=== PATIENT | female | born 1970 | race Caucasian/White ===

== ENCOUNTER → 2017-04-02 | Outpatient (CLI) | payer OTHER ==
[~2017-04-02] MED LIST: GADAVIST IV PRN
--- NOTE | 2017-04-02 16:03 | DIAGNOSTIC IMAGING REPORT ---
Brain MRI WITH AND WITHOUT CONTRAST HISTORY: Demyelinating disorder G35 Multiple [id number] TECHNIQUE: Multiplanar multisequence MRI of the brain was performed both before and after the intravenous administration of contrast. COMPARISON STUDY: 08/15/2015 FINDINGS: Multiple foci of increased signal within the periventricular deep white matter regions. These are identical as compared to the prior study. There are no new or interval findings. Old infarcts present described are again noted and are stable. Diffusion-weighted images show no evidence for an acute ischemic process. Postcontrast images are considered negative for an enhancing lesion. IMPRESSION: Stable evaluation of the brain with no change in the findings of a demyelinating disorder compared to the prior study. 2. No evidence for new or interval process. 3. Several old infarcts unchanged. 4. No evidence for abnormal postcontrast enhancement. Electronically signed by: Hung Lakhani M.D. 04/02/2017 4:02 PM Dictated Date/Time: 04/02/2017 3:54 PM
--- NOTE | 2017-04-02 16:12 | DIAGNOSTIC IMAGING REPORT ---
CERVICAL SPINE MRI WITH AND WITHOUT CONTRAST HISTORY: G35 Multiple [id number] TECHNIQUE: Multiplanar multisequence MRI of the cervical spine was performed both before and after the use of intravenous contrast. COMPARISON STUDY: Several spine MRI 08/15/2015. FINDINGS: Motion artifact. There is slight reversal of the normal cervical lordosis. Alignment is otherwise anatomic. Vertebral body heights are maintained. The paravertebral soft tissues are unremarkable. There are multiple areas of signal abnormality within the cervical cord and the upper thoracic cord. This exam is, mild by motion artifact. However, the scattered areas of signal abnormality within the cord do not appear to be significantly changed. No enhancement is shown on the postcontrast images to suggest active demyelination. No intracanalicular mass or fluid collection is present. Old infarct within the right cerebellar hemisphere. C2-C3: The central canal and neural foramen are patent. C3-C4: There is minimal disc bulge. The central canal is patent. Mild left-sided neural foraminal narrowing. C4-C5: There is minimal disc bulge. The central canal and the neural foramen are patent C5-C6: There is minimal disc bulge with a tiny central disc protrusion. The central canal is patent. There is mild right-sided neuroforaminal narrowing. C6-C7: Minimal disc bulge with a small left paracentral focal disc protrusion. No giving it central canal or neural foraminal narrowing. C7-T1: The central canal and neural foramen are patent. IMPRESSION: 1. Multiple foci of signal abnormality within the cervical cord and the upper thoracic cord consistent with demyelinating disease. No enhancement to suggest active demyelination. Overall, this is not significantly changed compared to the prior study. 2. Mild multilevel degenerative changes of the cervical spine. Electronically signed by: Ed Gallo M.D. 04/02/2017 4:11 PM Dictated Date/Time: 04/02/2017 4:01 PM
== END | disposition home or self-care (01) ==
LOC: C.MRI 13:34
PROVIDERS: ATTEND Psychiatry & Neurology Neurology
DX: G35 Multiple sclerosis (principal)